=== PATIENT | female | born 1935 | race Caucasian/White ===

== ENCOUNTER 2016-08-14 16:53 | Observation (INO) | payer OTHER ==
--- NOTE | 2016-08-14 17:06 | EDPHY ---
H & P HPI/ROS: Chief complaint: Increasing confusion HPI: 81-year-old woman with a past medical history of Alzheimer's dementia who lives in her own home being brought in by EMS after daughter and social science teacher called because of increasing confusion and aggressive behavior. Per EMS report patient was aggressive with her daughter and has been increasingly difficult to manage at home. Patient is currently confused and unable to provide any medical history. Per EMS report the patient has been in her normal state of health but I cannot verify this at this time. Patient was recently admitted in May of 2016 for acute blood-loss anemia and UTI. This is secondary to Coumadin for AF. Her atrial fibrillation was controlled that time and her Coumadin was stopped. She has only been taking aspirin since per instructions. ROS: Unobtainable secondary to the patient's confusion and dementia Past medical history: Alzheimer's dementia Acute blood-loss Anemia Atrial fibrillation with RVR UTI Medications: Quetiapine, gabapentin, metoprolol, famotidine, Aricept Allergies: No known drug allergies Physical exam: Gen: Awake, Alert, confused, disoriented HEENT: Nose: no rhinorrhea Eyes: PERRLA, EOMI Mouth: Moist mucosa Neck: Supple, no JVD Chest: nontender, lungs clear to auscultation Heart: S1, S2 normal, no murmur Abd: Soft, non-tender, no guarding Back: no CVA tenderness, no midline tenderness Ext: no edema, non-tender Skin: no rash Neuro: CN II-XII intact, Sensation grossly intact, Strength 5/5 in bilateral upper and lower extremities - Personal History Tetanus Vaccine Date: 2009 - Medical/Surgical History Hx Asthma: No Hx Chronic Respiratory Disease: No Hx Diabetes: No Hx Cardiac Disease: Yes Hx Renal Disease: No Hx Cirrhosis: No Hx Alcoholism: No Hx HIV/AIDS: No Hx Splenectomy or Spleen Trauma: No Other PMH: Afib; late alzheimers. GI Bleed - Social History Smoking Status: Former smoker Allergies/Adverse Reactions: No Known Allergies Allergy (Unverified 11/11/09 16:08) Home Medications: Medication Instructions Recorded Calcium Carb W/Vit D [Calcium Carb 500 mg PO BID 06/15/16 W/Vit D 500/200 (*)] Cholecalciferol Vit D3 [Vitamin D3 1,000 units PO DAILY 06/15/16 (*)] Donepezil HCl [Aricept] 10 mg PO DAILY 06/15/16 Famotidine [Pepcid 20 MG (*)] 20 mg PO BID 06/15/16 Quetiapine Fumarate 50 mg PO HS 06/15/16 Acetaminophen [Tylenol 325mg (*)] 650 mg PO Q4HRS PRN #0 tab 06/21/16 Aspirin EC [Aspirin EC 81 mg (*)] 81 mg PO DAILY #0 tab 06/21/16 Metoprolol Tartrate [Lopressor 25 12.5 mg PO BID #0 tab 06/21/16 mg (*)] Digoxin 07/05/16 Digoxin 07/05/16 Furosemide 07/05/16 Potassium 07/05/16 Warfarin Sodium 07/05/16 Medical Decision Making - Diagnostics Imaging: Chest x-ray: Diffuse bilateral infiltrates consistent with pneumonia per Dr. Nguyen, radiology.. ED Course/Re-evaluation: 81-year-old woman with a history of Alzheimer's dementia presenting with increased confusion. She does have some crackles bilaterally. Chest x-ray shows diffuse bilateral infiltrate consistent with pneumonia. Urinalysis is negative. Blood cultures and influenza swab been ordered. I will give ceftriaxone and azithromycin now for empiric community-acquired pneumonia treatment. I have discussed with Dr. Genesis Wu, hospitalist. She will accept the patient to her service for further care. - Data Points Laboratory Results: Laboratory Results 08/14/16 17:17 08/14/16 08/14/16 08/14/16 17:17 17:17 17:00 WBC 9.76 10^3/uL H 10^3/uL (3.80-9.50) RBC 4.55 10^6/uL 10^6/uL (4.18-5.33) Hgb 13.9 g/dL g/dL (12.6-16.3) Hct 41.9 % % (38.0-47.0) MCV 92.1 fL fL (81.5-99.8) MCH 30.5 pg pg (27.9-34.1) MCHC 33.2 g/dL g/dL (32.4-36.7) RDW 14.3 % % (11.5-15.2) Plt Count 378 10^3/uL 10^3/uL (150-400) MPV 9.1 fL fL (8.7-11.7) Neut % (Auto) 65.2 % % (39.3-74.2) Lymph % (Auto) 21.1 % % (15.0-45.0) [place] % (Auto) 12.4 % % (4.5-13.0) Eos % (Auto) 0.5 % L % (0.6-7.6) Baso % (Auto) 0.5 % % (0.3-1.7) Nucleat RBC Rel Count 0.0 % % (0.0-0.2) Absolute Neuts (auto) 6.36 10^3/uL 10^3/uL (1.70-6.50) Absolute Lymphs (auto) 2.06 10^3/uL 10^3/uL (1.00-3.00) Absolute Monos (auto) 1.21 10^3/uL H 10^3/uL (0.30-0.80) Absolute Eos (auto) 0.05 10^3/uL 10^3/uL (0.03-0.40) Absolute Basos (auto) 0.05 10^3/uL 10^3/uL (0.02-0.10) Absolute Nucleated RBC 0.00 10^3/uL 10^3/uL (0-0.01) Immature Gran % 0.3 % % (0.0-1.1) Immature Gran # 0.03 10^3/uL 10^3/uL (0.00-0.10) Sodium Pending Potassium Pending Chloride Pending Carbon Dioxide Pending Anion Gap Pending BUN Pending Creatinine Pending Estimated GFR Pending Glucose Pending Calcium Pending Total Bilirubin Pending Conjugated Bilirubin Pending Unconjugated Bilirubin Pending AST Pending ALT Pending Alkaline Phosphatase Pending Total Protein Pending Albumin Pending Lipase Pending Urine Color YELLOW Urine Appearance HAZY Urine pH 6.0 (5.0-7.5) Ur Specific [place] 1.006 (1.002-1.030) Urine Protein NEGATIVE (NEGATIVE) Urine Ketones TRACE H (NEGATIVE) Urine Blood NEGATIVE (NEGATIVE) Urine Nitrate NEGATIVE (NEGATIVE) Urine Bilirubin NEGATIVE (NEGATIVE) Urine Urobilinogen NEGATIVE EU EU (0.2-1.0) Ur Leukocyte Esterase NEGATIVE (NEGATIVE) Urine Glucose NEGATIVE (NEGATIVE) Departure - Departure Disposition: [facility] Clinical Impression: Confusion, Pneumonia Condition: Fair Referrals: Patient,NotPresent [Unknown] - As per Instructions
[2016-08-14 17:13] LABS: COLOR YELLOW; LEUKOCYTE ESTERASE,URINE NEGATIVE (NEGATIVE); NITRITE,URINE NEGATIVE (NEGATIVE)
[2016-08-14 17:36] LABS: % IMMATURE GRANULYOCYTES 0.3 % (0.0-1.1); ABSOLUTE IMMATURE GRANULOCYTES 0.03 10^3/uL (0.00-0.10); ADD DIFF? NO; ADD MORPH? NO; ADD SCAN? NO; ATYPICAL LYMPHOCYTE FLAG 20 (0-99); FRAGMENT RBC FLAG 10 (0-99); HEMATOCRIT 41.9 % (38.0-47.0); HEMOGLOBIN 13.9 g/dL (12.6-16.3); LEFT SHIFT FLG 0 (0-99); LIPEMIA HEMOLYSIS FLAG 80 (0-99); MEAN CELL HEMOGLOBIN 30.5 pg (27.9-34.1); MEAN CELL HEMOGLOBIN CONCENTR. 33.2 g/dL (32.4-36.7); MEAN CELL VOLUME 92.1 fL (81.5-99.8); MEAN PLATELET VOLUME 9.1 fL (8.7-11.7); PLATELET CLUMPS FLAG 0 (0-99); PLATELET COUNT 378 10^3/uL (150-400); RED BLOOD CELL COUNT 4.55 10^6/uL (4.18-5.33); RED CELL DISTRIBUTION WIDTH 14.3 % (11.5-15.2)
[2016-08-14] MEDS ORDERED: AZITHROMYCIN 250 MG TAB PO ONE (18:01)
[2016-08-14 18:09] LABS: ALANINE AMINOTRANSFERASE 36 IU/L (9-52); ALBUMIN 4.2 g/dL (3.5-5.0); ALKALINE PHOSPHATASE 109 IU/L (38-126); ANION GAP 13 mEq/L (8-16); ASPARTATE AMINOTRANSFERASE 36 IU/L (14-46); BILIRUBIN,TOTAL 0.8 mg/dL (0.1-1.4); BILIRUBIN-CONJUGATED 0.4 mg/dL (0.0-0.5); BILIRUBIN-UNCONJUGATED 0.4 mg/dL (0.0-1.1); CALCIUM 9.5 mg/dL (8.5-10.4); CARBON DIOXIDE 24 mEq/l (22-31); CHLORIDE 103 mEq/L (97-110); CREATININE 0.6 mg/dL (0.6-1.0); GLOMERULAR FILTRATION RATE > 60; GLUCOSE 85 mg/dL (70-100); POTASSIUM 4.1 mEq/L (3.5-5.2); SODIUM 140 mEq/L (134-144); TOTAL PROTEIN 7.6 g/dL (6.3-8.2)
[2016-08-14] MEDS ORDERED: ONDANSETRON DISINTEGRATING 4 MG TAB PO PRN (18:26)
[2016-08-14] MEDS ORDERED: NS 1,000 ML IV SCH (18:30)
[2016-08-14 18:46] LABS: INR 1.13 (0.83-1.16); PROTIME(PATIENT) 14.4 SEC (12.0-15.0)
--- NOTE | 2016-08-14 19:19 | GHP ---
[f rep st] HISTORY AND PHYSICAL DATE OF ADMISSION: 08/14/2016 CHIEF COMPLAINT: Combative. HISTORY OF PRESENT ILLNESS: This is a 81-year-old woman, with reported end-stage dementia, who was brought in by EMS. Report that I get is either through chart or through discussion with ED bonnie gill, Dr. Turner, as the patient is unable to provide much information. I attempted to call both her hu javed and her daughter. Her 's phone number was disconnected, and her daughter's number went straight to her voicemail. Apparently, she was brought in by EMS after being combative with her daughter. Her daughter told [employer] that she was unable to care for her anymore. The patient tells me that she lives with her , now I am unsure exactly what to make of all this. REVIEW OF SYSTEMS: Negative including cough, fever, myalgias. She is not having any abdominal pain . PAST MEDICAL/SURGICAL HISTORY: 1. End-stage dementia. 2. History of breast cancer. 3. Atrial fibrillation. MEDICATIONS: Please see medication reconciliation. ALLERGIES: None. FAMILY HISTORY: Unobtainable, given patient's condition. SOCIAL HISTORY: Negative for alcohol, tobacco, or illicit drugs. REVIEW OF SYSTEMS: 10-point review of systems is conducted and is negative except per HPI. PHYSICAL EXAM: VITAL SIGNS: Blood pressure 140/80, heart rate is 88, she is afebrile, breathing no rmally. GENERAL: The patient is a pleasant female, not in acute distress. HEENT: Normocephalic, atraumatic. CARDIOVASCULAR: Regular rate and rhythm. She has 1/6 systolic murmur. PULMONARY: Ary ngs clear to auscultation bilaterally. ABDOMEN: Soft, nontender, nondistended. SKIN: No rash. : No [place]. NEUROLOGIC: Alert and oriented x3. She is moving all extremities. PSYCHIATRIC: Nor mal mood and affect. LABS: White count 9.7, with an even distribution. CMP is normal. Urinalysis is negative. DATA: I discussed this case with Dr. Turner. Will admit to med/surg. I personally viewed and inter preted her chest x-ray. This shows mild perihilar infiltrates, mild interstitial predominance. IMPRESSION AND PLAN: A 81-year-old female with dementia brought in for aggressive behavior. 1. Dementia with behavioral outbursts: She currently appears calm to me. I will not empirically w rite for any antipsychotics, though, if she becomes agitated would consider this. I am unable to gi ve much history at this point, as I am unable to contact family and she is not providing much histor y. Will need case management assistance to sort out exactly what happened. There may need to be fu rther placement considerations. 2. Pulmonary: She has mild perihilar infiltrates and interstitial predominance. She clinically do es not have a pneumonia or influenza. Influenza has been sent. She has gotten 1 dose of community- acquired pneumonia antibiotics. I will hold off writing further antibiotics, and follow her clinica l course. If she is positive for influenza, would consider Tamiflu. 3. Dementia. 4. Atrial fibrillation, reportedly on anticoagulation: I have checked an INR. She is rate control led. 5. Code status: I am unable to determine this at this point. I will not put an order because of t his. She was do not resuscitate on previous admission. 6. Venous thromboembolism risk: She is going to be moderate to high. I will place her on Lovenox. /[id number]/MODL
[2016-08-14] MEDS: ACETAMINOPHEN 325 MG TAB PO PRN (21:19)
[2016-08-15 05:32] LABS: % IMMATURE GRANULYOCYTES 0.4 % (0.0-1.1); ABSOLUTE IMMATURE GRANULOCYTES 0.03 10^3/uL (0.00-0.10); ADD DIFF? NO; ADD MORPH? NO; ADD SCAN? NO; ATYPICAL LYMPHOCYTE FLAG 30 (0-99); FRAGMENT RBC FLAG 0 (0-99); HEMATOCRIT 38.1 % (38.0-47.0); HEMOGLOBIN 12.5 g/dL (12.6-16.3); LEFT SHIFT FLG 0 (0-99); LIPEMIA HEMOLYSIS FLAG 80 (0-99); MEAN CELL HEMOGLOBIN 30.7 pg (27.9-34.1); MEAN CELL HEMOGLOBIN CONCENTR. 32.8 g/dL (32.4-36.7); MEAN CELL VOLUME 93.6 fL (81.5-99.8); MEAN PLATELET VOLUME 9.4 fL (8.7-11.7); PLATELET CLUMPS FLAG 0 (0-99); PLATELET COUNT 313 10^3/uL (150-400); RED BLOOD CELL COUNT 4.07 10^6/uL (4.18-5.33); RED CELL DISTRIBUTION WIDTH 14.1 % (11.5-15.2)
[2016-08-15 05:36] LABS: INR 1.21 (0.83-1.16); PROTIME(PATIENT) 15.3 SEC (12.0-15.0)
[2016-08-15 05:46] LABS: ANION GAP 7 mEq/L (8-16); CALCIUM 8.9 mg/dL (8.5-10.4); CARBON DIOXIDE 25 mEq/l (22-31); CHLORIDE 107 mEq/L (97-110); CREATININE 0.5 mg/dL (0.6-1.0); GLOMERULAR FILTRATION RATE > 60; GLUCOSE 83 mg/dL (70-100); POTASSIUM 4.1 mEq/L (3.5-5.2); SODIUM 139 mEq/L (134-144)
--- NOTE | 2016-08-15 09:58 | HOSPPROG ---
Hospitalist Progress Note Assessment/Plan: #DEMENTIA WITH BEHAVIORAL OUTBURSTS. #PAROXYSMAL AFIB, on Metoprolol. Holding AC #HX OF BREAST CANCER #GERD #PERIHILAR INFILTRATES ON CXR, NO CLINICAL PNEUMONIA PLAN: -CM to evaluate. Needs placement -Hold Gabapentin -Hold AC for now. Need to determine if she is a fall risk. Cont with Lovenox at prophylactic doses -Restart Seroquel -PT/OT S: No overnight events. Several outbursts reported. Difficult to obtain history. Afebrile. O: VSS NAD AWAKE AND ALERT. NOT ORIENTED MMM RRR CTA B S/NT/ND NO EDEMA LABS REVIEWED Objective: Vital Signs Temp Pulse Resp BP Pulse Ox 36.6 C 93 16 111/80 94 08/15/16 07:44 08/15/16 07:44 08/15/16 07:44 08/15/16 07:44 08/15/16 07:44 Laboratory Results 08/15/16 04:25 08/15/16 04:25 08/14/16 08/15/16 08/16/16 05:59 05:59 05:59 Intake Total 650 150 Output Total 50 300 Balance 600 -150 PT 15.3 SEC (12.0-15.0) H 08/15/16 04:25 INR 1.21 (0.83-1.16) H 08/15/16 04:25 ICD10 Worksheet Patient Problems: Problems Problem Status Onset Confusion Acute Pneumonia Acute Arthrodesis status Acute Cervical radiculitis Acute Hematochezia Acute Neck pain Acute
--- NOTE | 2016-08-15 10:26 | CPEKG ---
Heart Rate: 103 RR Interval: 583 QRSD Interval: 74 QT Interval: 344 QTC Interval: 451 QRS [place]: 24 T Wave [place]: 19 EKG Severity - ABNORMAL ECG - EKG Impression: ATRIAL FIBRILLATION Electronically Signed By: Daniel Whaley 15-Aug-2016 12:58:54
[2016-08-15] MEDS: METOPROLOL TARTRATE 25 MG TAB PO SCH (10:46)
[2016-08-15] MEDS: DONEPEZIL HCL 5 MG TAB PO SCH (10:46)
[2016-08-15] MEDS: FAMOTIDINE 20 MG TAB PO SCH ×2 (10:48→20:57)
[2016-08-15] MEDS: CHOLECALCIFEROL VIT D3 1,000 UNITS TAB PO SCH (10:48)
[2016-08-15] MEDS: ENOXAPARIN 40 MG/0.4 ML SYR SC SCH (10:53)
[2016-08-15] MEDS: ACETAMINOPHEN 325 MG TAB PO PRN (15:28)
[2016-08-15] MEDS: QUEtiapine FUMARATE 50 MG TAB PO SCH (20:57)
[2016-08-16 07:47] LABS: % IMMATURE GRANULYOCYTES 0.3 % (0.0-1.1); ABSOLUTE IMMATURE GRANULOCYTES 0.02 10^3/uL (0.00-0.10); ADD DIFF? NO; ADD MORPH? NO; ADD SCAN? NO; ATYPICAL LYMPHOCYTE FLAG 0 (0-99); FRAGMENT RBC FLAG 0 (0-99); HEMATOCRIT 43.7 % (38.0-47.0); HEMOGLOBIN 14.2 g/dL (12.6-16.3); LEFT SHIFT FLG 0 (0-99); LIPEMIA HEMOLYSIS FLAG 80 (0-99); MEAN CELL HEMOGLOBIN 30.9 pg (27.9-34.1); MEAN CELL HEMOGLOBIN CONCENTR. 32.5 g/dL (32.4-36.7); PLATELET CLUMPS FLAG 0 (0-99); PLATELET COUNT 333 10^3/uL (150-400); RED CELL DISTRIBUTION WIDTH 14.1 % (11.5-15.2)
[2016-08-16] MEDS: DONEPEZIL HCL 5 MG TAB PO SCH (07:47)
[2016-08-16] MEDS: ACETAMINOPHEN 325 MG TAB PO PRN (07:48)
[2016-08-16] MEDS: CHOLECALCIFEROL VIT D3 1,000 UNITS TAB PO SCH (07:48)
[2016-08-16] MEDS: METOPROLOL TARTRATE 25 MG TAB PO SCH (07:48)
[2016-08-16] MEDS: FAMOTIDINE 20 MG TAB PO SCH ×2 (07:48→19:48)
[2016-08-16] MEDS: ENOXAPARIN 40 MG/0.4 ML SYR SC SCH (07:49)
[2016-08-16 08:08] LABS: ANION GAP 10 mEq/L (8-16); CALCIUM 9.7 mg/dL (8.5-10.4); CARBON DIOXIDE 24 mEq/l (22-31); CHLORIDE 106 mEq/L (97-110); CREATININE 0.5 mg/dL (0.6-1.0); GLOMERULAR FILTRATION RATE > 60; GLUCOSE 114 mg/dL (70-100); MAGNESIUM 1.6 mg/dL (1.6-2.3); SODIUM 140 mEq/L (134-144)
--- NOTE | 2016-08-16 09:40 | HOSPPROG ---
Hospitalist Progress Note Assessment/Plan: #DEMENTIA WITH BEHAVIORAL OUTBURSTS, needs placement #PAROXYSMAL AFIB, on Metoprolol. Restart AC, not a fall risk. #HX OF BREAST CANCER #GERD #PERIHILAR INFILTRATES ON CXR, NO CLINICAL PNEUMONIA PLAN: -CM to evaluate. Needs placement -Hold Gabapentin -Restart Warfarin -Donepezil, Seroquel -Gentle orientation if possible -PT/OT S: No overnight events. Persistent several outbursts reported. Difficult to obtain history. Afebrile. O: VSS NAD AWAKE AND ALERT. NOT ORIENTED MMM RRR CTA B S/NT/ND NO EDEMA LABS REVIEWED Objective: Vital Signs Temp Pulse Resp BP Pulse Ox 36.3 C 98 16 133/81 H 92 08/16/16 07:45 08/16/16 07:45 08/16/16 07:45 08/16/16 07:45 08/16/16 07:45 Laboratory Results 08/16/16 07:36 08/16/16 07:36 08/15/16 08/16/16 08/17/16 05:59 05:59 05:59 Intake Total 650 150 Output Total 50 1050 150 Balance 600 -900 -150 PT 15.3 SEC (12.0-15.0) H 08/15/16 04:25 INR 1.21 (0.83-1.16) H 08/15/16 04:25 ICD10 Worksheet Patient Problems: Problems Problem Status Onset Confusion Acute Pneumonia Acute Arthrodesis status Acute Cervical radiculitis Acute Hematochezia Acute Neck pain Acute
[2016-08-16] MEDS ORDERED: LORazepam 2 MG/ML INJ ONE (14:06)
[2016-08-16] MEDS ORDERED: LORazepam 2 MG/ML INJ IVP ONE (14:30)
[2016-08-16] MEDS: LORazepam 2 MG/ML INJ IVP PRN ×2 (14:30→19:52)
[2016-08-16] MEDS ORDERED: WARFARIN SODIUM 2.5 MG TAB PO ONE (16:00)
[2016-08-16] MEDS: ASPIRIN 81 MG CHEWABLE TAB PO SCH (19:48)
[2016-08-16] MEDS: QUEtiapine FUMARATE 50 MG TAB PO SCH (19:48)
[2016-08-17 05:30] LABS: % IMMATURE GRANULYOCYTES 0.3 % (0.0-1.1); ABSOLUTE IMMATURE GRANULOCYTES 0.02 10^3/uL (0.00-0.10); ADD DIFF? NO; ADD MORPH? NO; ADD SCAN? NO; ATYPICAL LYMPHOCYTE FLAG 10 (0-99); FRAGMENT RBC FLAG 0 (0-99); HEMATOCRIT 38.8 % (38.0-47.0); HEMOGLOBIN 12.5 g/dL (12.6-16.3); LEFT SHIFT FLG 0 (0-99); LIPEMIA HEMOLYSIS FLAG 80 (0-99); MEAN CELL HEMOGLOBIN 29.5 pg (27.9-34.1); MEAN CELL HEMOGLOBIN CONCENTR. 32.2 g/dL (32.4-36.7); MEAN CELL VOLUME 91.5 fL (81.5-99.8); MEAN PLATELET VOLUME 9.1 fL (8.7-11.7); PLATELET CLUMPS FLAG 0 (0-99); PLATELET COUNT 316 10^3/uL (150-400); RED BLOOD CELL COUNT 4.24 10^6/uL (4.18-5.33); RED CELL DISTRIBUTION WIDTH 13.9 % (11.5-15.2)
[2016-08-17] MEDS: ACETAMINOPHEN 325 MG TAB PO PRN ×2 (08:02→14:56)
[2016-08-17] MEDS: METOPROLOL TARTRATE 25 MG TAB PO SCH (08:02)
[2016-08-17] MEDS: CHOLECALCIFEROL VIT D3 1,000 UNITS TAB PO SCH (08:03)
[2016-08-17] MEDS: DONEPEZIL HCL 5 MG TAB PO SCH (08:03)
[2016-08-17] MEDS: FAMOTIDINE 20 MG TAB PO SCH ×2 (08:03→19:44)
[2016-08-17] MEDS: ASPIRIN 81 MG CHEWABLE TAB PO SCH (08:03)
--- NOTE | 2016-08-17 10:36 | HOSPPROG ---
Hospitalist Progress Note Assessment/Plan: 81 yo female with advance dementia with behavioral outbursts admitted for worsening behavioral outbursts and increased confusion. She had an infectious w/ u which was essentially negative. She did have an XR with perihilar infiltrates , but clinically did not have an infection. She initially received IVF and these have been stopped. Her demential with behavioral outburst have progressed and at this time she needs placement w/i a dementia unit for safety. She is awaiting placement. #DEMENTIA WITH BEHAVIORAL OUTBURSTS, needs placement, on Donepezil and Seroquel. Gabapentin has been stopped due to confusion. She denies pain. Ativan as needed #PAROXYSMAL AFIB, on Metoprolol. AC was discontinued prior to admission. She is not on AC #HX OF BREAST CANCER #GERD #PERIHILAR INFILTRATES ON CXR, NO CLINICAL PNEUMONIA PLAN: -CM to evaluate. Needs placement -Hold Gabapentin -Donepezil, Seroquel -Gentle orientation if possible -PT/OT -Ativan as needed. Will change to PO. S: No overnight events. Will likely be placed today O: VSS NAD AWAKE AND ALERT. NOT ORIENTED MMM RRR CTA B S/NT/ND NO EDEMA BCx: negative thus far after 36 hrs. Objective: Vital Signs Temp Pulse Resp BP Pulse Ox 36.7 C 108 H 14 122/90 H 93 08/17/16 08:00 08/17/16 08:00 08/17/16 08:00 08/17/16 08:00 08/17/16 08:00 Laboratory Results 08/17/16 04:50 08/16/16 07:36 08/16/16 08/17/16 08/18/16 05:59 05:59 05:59 Intake Total 150 Output Total 1050 750 Balance -900 -750 PT 15.3 SEC (12.0-15.0) H 08/15/16 04:25 INR 1.21 (0.83-1.16) H 08/15/16 04:25 - Physical Exam Constitutional: no apparent distress, appears nourished, not in pain Eyes: PERRL, anicteric sclera, EOMI Ears, Nose, Mouth, Throat: moist mucous membranes, hearing normal, ears appear normal, no oral mucosal ulcers Cardiovascular: regular rate and rhythym, no murmur, rub, or gallop Respiratory: no respiratory distress, no rales or rhonchi, clear to auscultation Gastrointestinal: normoactive bowel sounds, soft, non-tender abdomen, no palpable masses Genitourinary: no bladder fullness, no bladder tenderness, no renal bruits Skin: no rashes or abrasions, no fluctuance, no induration Musculoskeletal: full muscle strength, no muscle tenderness, normal joint ROM Neurologic: sensation intact bilaterally Psychiatric: poor insight, poor judgement Lymph, Heme, Immunologic: no cervical LAD ICD10 Worksheet Patient Problems: Problems Problem Status Onset Confusion Acute Pneumonia Acute Arthrodesis status Acute Cervical radiculitis Acute Hematochezia Acute Neck pain Acute
[2016-08-17] MEDS ORDERED: LORazepam 1 MG/0.5 ML UDSYR PO PRN (10:38)
[2016-08-17] MEDS: ENOXAPARIN 40 MG/0.4 ML SYR SC SCH (12:02)
[2016-08-17] MEDS: LORazepam 0.5 MG TAB PO PRN ×3 (12:02→19:44)
[2016-08-17 15:57] VITALS: RESP 16
[2016-08-17] MEDS: QUEtiapine FUMARATE 50 MG TAB PO SCH (19:44)
[2016-08-18 06:10] VITALS: PULSE 84; TEMP 98.2; O2SAT 94
[2016-08-18 07:16] VITALS: BP 147/100
[2016-08-18] MEDS: DONEPEZIL HCL 5 MG TAB PO SCH (07:49)
[2016-08-18] MEDS: ASPIRIN 81 MG CHEWABLE TAB PO SCH (07:50)
[2016-08-18] MEDS: CHOLECALCIFEROL VIT D3 1,000 UNITS TAB PO SCH (07:50)
[2016-08-18] MEDS: FAMOTIDINE 20 MG TAB PO SCH (07:50)
[2016-08-18] MEDS: LORazepam 0.5 MG TAB PO PRN (07:50)
[2016-08-18] MEDS: METOPROLOL TARTRATE 25 MG TAB PO SCH (07:50)
--- NOTE | 2016-08-18 10:00 | PDIAF ---
- Diagnosis Diagnosis: dementia - Medication Management Discharge Medications: Medications to Continue on Transfer Acetaminophen [Tylenol 325mg (*)] 650 mg PO Q4HRS PRN #60 tab 08/18/16 [Last Taken Unknown] Aspirin [Aspirin 81mg (*)] 81 mg PO DAILY #30 tab.chew 08/18/16 [Last Taken Unknown] Cholecalciferol Vit D3 [Vitamin D3 (*)] 1,000 units PO DAILY #30 tab 08/18/16 [ Last Taken Unknown] Donepezil HCl [Aricept] 10 mg PO DAILY #30 tablet 08/18/16 [Last Taken Unknown] Famotidine [Pepcid 20 MG (*)] 20 mg PO BID #60 tab 08/18/16 [Last Taken Unknown] Metoprolol Tartrate [Lopressor 25 mg (*)] 12.5 mg PO DAILY #30 tab 08/18/16 [ Last Taken Unknown] Quetiapine Fumarate 50 mg PO HS #30 tablet 08/18/16 [Last Taken Unknown] Discharge Medications: Refer to the Discharge Home Medication list for PRN reason. - Orders Services needed: Registered Nurse, Master Channel Installer Diet Recommendation: no restrictions on diet Diet Texture: Thin Liquids - Follow Up Care Current Providers and Referrals: Patient,NotPresent [Unknown] - As per Instructions
[2016-08-18] MEDS: ENOXAPARIN 40 MG/0.4 ML SYR SC SCH (10:26)
[2016-08-18] MEDS: ACETAMINOPHEN 325 MG TAB PO PRN (13:31)
--- NOTE | 2016-08-18 20:03 | GDS ---
DISCHARGE DIAGNOSES: 1. Dementia with behavioral outburst. 2. Atrial fibrillation, permanent. HISTORY OF PRESENT ILLNESS: A 81-year-old female with well known dementia brought in for aggressive behavior and disruptive outbursts. For details of the patient's initial presentation, please see the History and Physical dated . HOSPITAL COURSE: By issue: 1. Dementia with behavioral disturbance. It was decided that the patient be taken to assisted facility with a lock-down cognitive aj. The patient remained stable on our floor with 24 hour supervision and sitter. 2. Atrial fibrillation, permanent. Patient remained rate controlled. Continue on her home medications. MEDICATIONS AT THE TIME OF TRANSFER: Please reference medication reconciliation printed on 06/17/2017. FOLLOWUP APPOINTMENTS: Include physicians provided through the lock-down nursing aj she is being discharged to. PENDING STUDIES: At the time of this dictation: None. I spent > 30 minutes in the planning and coordination of this discharge /[id number]/MODL MTDD
== END 2016-08-18 18:47 ==
LOC: EDUNIT# → INTOOBSV 18:04 → F3E 20:50
PROVIDERS: ADMIT Internal Medicine; ATTEND Hospitalist
DX: G30.9 Alzheimer's disease, unspecified (principal); F02.81 Dementia in other diseases classified elsewhere, unspecified severity, with behavioral disturbance; I48.2 Chronic atrial fibrillation; K21.9 Gastro-esophageal reflux disease without esophagitis; Z85.3 Personal history of malignant neoplasm of breast
CPT/HCPCS: 71020; 93005; 97165; 99285; G0378; J0696; J1650

== ENCOUNTER 2016-11-09 18:17 | Emergency (ER) | payer OTHER ==
--- NOTE | 2016-11-09 19:09 | EDPHY ---
H & P Stated Complaint: "gait off" Time Seen by Provider: 11/09/16 18:58 HPI/ROS: CHIEF COMPLAINT: Abnormal gait HISTORY OF PRESENT ILLNESS: The patient is a 81-year-old female with dementia from [facility]. Family was called today around 3:00 p.m. because they noticed her gait was off. She typically walks a lot throughout the day but they noticed today she was not walking as much in which she does she kind of leans to the left and tracks her right foot. The patient denies any pain. She has some very small abrasion to her right akhtar. She also has a headache but she states this is baseline. No history of CVA or MS. No known falls. REVIEW OF SYSTEMS: Constitutional: denies: chills, fever, recent illness, recent injury EENTM: denies: blurred vision, double vision, nose congestion Respiratory: denies: cough, shortness of breath Cardiac: denies: chest pain, irregular heart rate, lightheadedness, palpitations Gastrointestinal/Abdominal: denies: abdominal pain, diarrhea, nausea, vomiting, blood streaked stools Genitourinary: denies: dysuria, frequency, hematuria, pain Musculoskeletal: See HPI Skin: denies: lesions, rash, jaundice, bruising Neurological: denies: headache, numbness, paresthesia, tingling, dizziness, weakness Hematologic/Lymphatic: denies: blood clots, easy bleeding, easy bruising Immunologic/allergic: denies: HIV/AIDS, transplant EXAM: GENERAL: Well-appearing, well-nourished and in no acute distress. HEAD: Atraumatic, normocephalic. EYES: Pupils equal round and reactive to light, extraocular movements intact, sclera anicteric, conjunctiva are normal. ENT: TMs normal, nares patent, oropharynx clear without exudates. Moist mucous membranes. NECK: Normal range of motion, supple without lymphadenopathy or JVD. LUNGS: Breath sounds clear to auscultation bilaterally and equal. No wheezes rales or rhonchi. HEART: Regular rate and rhythm without murmurs, rubs or gallops. ABDOMEN: Soft, nontender, normoactive bowel sounds. No guarding, no rebound. No masses appreciated. BACK: No CVA tenderness, no spinal tenderness, step-offs or deformities EXTREMITIES: Normal range of motion, no pitting or edema. No clubbing or cyanosis. NEUROLOGICAL: Cranial nerves II through XII grossly intact. Normal speech, patient leans slightly to the right when ambulating and tends to drag her right foot been very slightly. When asked she states that she does have mild pelvic pain while ambulating. . 5/5 strength, normal movement in all extremities, normal sensation PSYCH: Confused. SKIN: Warm, dry, normal turgor, no visible rashes or lesions. Source: Patient Exam Limitations: No limitations - Personal History Current Tetanus/Diphtheria Vaccine: Yes Current Tetanus Diphtheria and Acellular Pertussis (TDAP): Yes Tetanus Vaccine Date: 2009 - Medical/Surgical History Hx Asthma: No Hx Chronic Respiratory Disease: No Hx Diabetes: No Hx Cardiac Disease: Yes Hx Renal Disease: No Hx Cirrhosis: No Hx Alcoholism: No Hx HIV/AIDS: No Hx Splenectomy or Spleen Trauma: No Other PMH: [facility] pt. dementia, Afib; late alzheimers; breast CA. GI Bleed - Family History Significant Family History: No pertinent family hx - Social History Smoking Status: Former smoker Alcohol Use: Sober Drug Use: None Constitutional: Initial Vital Signs Temperature (C) 36.2 C 11/09/16 18:24 Heart Rate 81 11/09/16 18:24 Respiratory Rate 16 11/09/16 18:24 Blood Pressure 106/72 11/09/16 18:24 O2 Sat (%) 96 11/09/16 18:24 O2 Delivery Mode Room Air Allergies/Adverse Reactions: No Known Allergies Allergy (Unverified 11/11/09 16:08) Home Medications: Medication Instructions Recorded Acetaminophen [Tylenol 325mg (*)] 650 mg PO Q4HRS PRN #60 tab 08/18/16 Aspirin [Aspirin 81mg (*)] 81 mg PO DAILY #30 tab.chew 08/18/16 Cholecalciferol Vit D3 [Vitamin D3 1,000 units PO DAILY #30 tab 08/18/16 (*)] Donepezil HCl [Aricept] 10 mg PO DAILY #30 tablet 08/18/16 Famotidine [Pepcid 20 MG (*)] 20 mg PO BID #60 tab 08/18/16 Metoprolol Tartrate [Lopressor 25 12.5 mg PO DAILY #30 tab 08/18/16 mg (*)] Quetiapine Fumarate 50 mg PO HS #30 tablet 08/18/16 Medical Decision Making - Diagnostics Imaging: Discussed imaging studies w/ will call order clerk Radiologist, I viewed and interpreted images myself ED Course/Re-evaluation: We discussed the x-ray results. I had a long discussion with patient's daughter. I do not have and a diagnosis at this point for why she has a changed gait today. She is not show symptoms of stroke. I suspect she has a radiculopathy causing may very mild foot drop. Or possibly low back pain. I offered admission and MRI of her lumbar spine and possibly brain. Daughter and patient state that she does not do well on hospitals because very agitated and wonders. She thinks that the patient was sent here primarily to make sure she is safe. Otherwise they are comfortable with her returning home. It is also question as to whether not they would want any invasive procedures if required. I believe that is safe to workup as an outpatient. I will call Dr. Collins her primary to facilitate outpatient workup. We discussed indications for returning. 8:[address] p[address] we discussed the CT results. Patient and family are eager to go home. Daughter states that she is actually walking better than she was earlier. She has normal reflexes, normal dorsiflexion strength and plantar flexion strength. Patient states she feels asymptomatic. She urinated and did not give us a sample. She denies urinary symptoms. I have paged Dr. Collins to discuss and facilitate outpatient workup. 9:14 p.m. I discussed the case with Dr. Gray who is on-call for Dr. Collins. She agrees with the plan and will have the spring encaser arrange follow-up. Differential Diagnosis: Partial list of the Differential diagnosis considered include but were not limited to; hip fracture, knee injury, radiculopathy and although unlikely based on the history and physical exam, I also considered CVA, hemorrhage, MS, infection. I discussed these differential diagnoses and the plan with the patient as well as the usual and expected course. The patient understands that the diagnosis is provisional and that in medicine we are not always correct and that further workup is often warranted. Usual and customary warnings were given. All of the patient's questions were answered. The patient was instructed to return to the emergency department should the symptoms at all worsen or return, otherwise to followup with the physician as we discussed. Departure - Departure Disposition: Home, Routine, Self-Care Clinical Impression: Gait abnormality Condition: Fair Instructions: Fall Prevention for Older Adults (ED) Referrals: Chao Collins MD [Primary Care Provider] - As per Instructions
[2016-11-09 21:00] VITALS: BP 97/78; PULSE 98; RESP 18; TEMP 98.2; O2SAT 93
== END 2016-11-09 21:00 | disposition home or self-care (01) ==
DX: R26.9 Unspecified abnormalities of gait and mobility (principal); Z79.82 Long term (current) use of aspirin; Z85.3 Personal history of malignant neoplasm of breast; Z87.891 Personal history of nicotine dependence

== ENCOUNTER 2016-11-17 11:29 | Emergency (ER) | payer OTHER ==
[2016-11-17 11:53] VITALS: RESP 18
[2016-11-17 12:04] LABS: COLOR YELLOW; LEUKOCYTE ESTERASE,URINE 1+ (NEGATIVE); NITRITE,URINE POSITIVE (NEGATIVE)
[2016-11-17 12:08] LABS: MUCUS TRACE /lpf (NONE-1+)
[2016-11-17 12:10] LABS: RBC,URINE NONE SEEN /hpf (0-3)
--- NOTE | 2016-11-17 12:11 | EDPHY ---
H & P Stated Complaint: increased agitation, aggressive with staff at [facility] Time Seen by Provider: 11/17/16 11:30 HPI/ROS: CHIEF COMPLAINT: increased agitation and aggression HISTORY OF PRESENT ILLNESS: 81-year-old female with history end-stage dementia presents to the emergency department by ambulance from [facility] for increased aggressive behavior and disruptive outbursts over the last week. Today the patient was knocking on other residents doors and was swinging at staff members. Patient has been agitated since arriving at [facility] in July per the nurse I spoke to taking care of her today. This morning was her 1st dose of an extra dose of Seroquel. senior care reports she is normally redirectable though today she was not. She normally takes 50 mg of Seroquel every night, this morning she got 25 mg that that ordered for increasing agitation. No cold or cough symptoms, normal appetite. REVIEW OF SYSTEMS: A comprehensive 10 point review of systems is otherwise negative aside from elements mentioned in the history of present illness. Source: Patient, EMS, senior care records, Old records Exam Limitations: Clinical condition - Personal History Tetanus Vaccine Date: 2009 - Medical/Surgical History Hx Asthma: No Hx Chronic Respiratory Disease: No Hx Diabetes: No Hx Cardiac Disease: Yes Hx Renal Disease: No Hx Cirrhosis: No Hx Alcoholism: No Hx HIV/AIDS: No Hx Splenectomy or Spleen Trauma: No Other PMH: [facility] pt. dementia, Afib; late alzheimers; breast CA. GI Bleed - Social History Smoking Status: Former smoker - Physical Exam Exam: Physical Exam Gen: Awake and alert, no apparent distress HEENT: PERRL, moist mucous membranes NECK: no meningismus CV: regular rate and regular rhythm PULM: CTAB, no wheezes ABDOMEN: soft, non tender to palpation, BS present BACK: No CVA tenderness NEURO: Follows commands, moves all extremities, no facial asymmetry EXTREMITIES: normal appearing SKIN: no rash or break in skin on exposed skin Constitutional: Initial Vital Signs Temperature (C) 36.6 C 11/17/16 11:51 Heart Rate 85 11/17/16 11:51 Respiratory Rate 18 11/17/16 11:51 Blood Pressure 116/81 H 11/17/16 11:51 O2 Sat (%) 94 11/17/16 11:51 O2 Delivery Mode Room Air Allergies/Adverse Reactions: No Known Allergies Allergy (Unverified 11/11/09 16:08) Home Medications: Medication Instructions Recorded Acetaminophen [Tylenol 325mg (*)] 650 mg PO Q4HRS PRN #60 tab 08/18/16 Aspirin [Aspirin 81mg (*)] 81 mg PO DAILY #30 tab.chew 08/18/16 Cholecalciferol Vit D3 [Vitamin D3 1,000 units PO DAILY #30 tab 08/18/16 (*)] Donepezil HCl [Aricept] 10 mg PO DAILY #30 tablet 08/18/16 Famotidine [Pepcid 20 MG (*)] 20 mg PO BID #60 tab 08/18/16 Metoprolol Tartrate [Lopressor 25 12.5 mg PO DAILY #30 tab 08/18/16 mg (*)] Quetiapine Fumarate 50 mg PO HS #30 tablet 08/18/16 Cephalexin [Keflex] 500 mg PO BID 5 Days 11/17/16 Medical Decision Making ED Course/Re-evaluation: IV established, CBC, chemistry panel and urinalysis ordered. Records were reviewed from patient's visit 1 week ago. She had a normal CT brain at this time, no laboratory studies were performed. CBC and chemistry panel are unremarkable with normal electrolytes. Urinalysis shows positive nitrates with 1+ leukocytes and 5-10 WBCs, I think this could be contributing to her increased agitation. Patient was given her 1st dose of Keflex in the emergency department and discharged with a prescription for a 5 day course. Urine culture has been ordered and is pending. Patient is nontoxic appearing, normal vital signs, afebrile. She is ambulatory without difficulty with a normal gait. Pt is given 0.5mg of oral lorazepam for agitation in the emergency department. Differential Diagnosis: Diagnosis considered but not limited to urinary tract infection, encephalopathy , electrolyte abnormality, medication reaction, end-stage dementia. - Data Points Laboratory Results: Laboratory Results 11/17/16 12:04 11/17/16 12:04 11/17/16 11/17/16 11/17/16 12:04 12:04 11:48 WBC 8.23 10^3/uL 10^3/uL (3.80-9.50) RBC 4.99 10^6/uL 10^6/uL (4.18-5.33) Hgb 15.1 g/dL g/dL (12.6-16.3) Hct 45.0 % % (38.0-47.0) MCV 90.2 fL fL (81.5-99.8) MCH 30.3 pg pg (27.9-34.1) MCHC 33.6 g/dL g/dL (32.4-36.7) RDW 15.3 % H % (11.5-15.2) Plt Count 305 10^3/uL 10^3/uL (150-400) MPV 9.6 fL fL (8.7-11.7) Neut % (Auto) 71.4 % % (39.3-74.2) Lymph % (Auto) 19.1 % % (15.0-45.0) [place] % (Auto) 8.0 % % (4.5-13.0) Eos % (Auto) 0.5 % L % (0.6-7.6) Baso % (Auto) 0.6 % % (0.3-1.7) Nucleat RBC Rel Count 0.0 % % (0.0-0.2) Absolute Neuts (auto) 5.88 10^3/uL 10^3/uL (1.70-6.50) Absolute Lymphs (auto) 1.57 10^3/uL 10^3/uL (1.00-3.00) Absolute Monos (auto) 0.66 10^3/uL 10^3/uL (0.30-0.80) Absolute Eos (auto) 0.04 10^3/uL 10^3/uL (0.03-0.40) Absolute Basos (auto) 0.05 10^3/uL 10^3/uL (0.02-0.10) Absolute Nucleated RBC 0.00 10^3/uL 10^3/uL (0-0.01) Immature Gran % 0.4 % % (0.0-1.1) Immature Gran # 0.03 10^3/uL 10^3/uL (0.00-0.10) Sodium 140 mEq/L mEq/L (134-144) Potassium 4.4 mEq/L mEq/L (3.5-5.2) Chloride 105 mEq/L mEq/L (97-110) Carbon Dioxide 25 mEq/l mEq/l (22-31) Anion Gap 10 mEq/L mEq/L (8-16) BUN 20 mg/dL mg/dL (7-23) Creatinine 0.6 mg/dL mg/dL (0.6-1.0) Estimated GFR > 60 Glucose 104 mg/dL H mg/dL (70-100) Calcium 9.8 mg/dL mg/dL (8.5-10.4) Urine Color YELLOW Urine Appearance HAZY Urine pH 6.0 (5.0-7.5) Ur Specific [place] 1.015 (1.002-1.030) Urine Protein NEGATIVE (NEGATIVE) Urine Ketones NEGATIVE (NEGATIVE) Urine Blood NEGATIVE (NEGATIVE) Urine Nitrate POSITIVE H (NEGATIVE) Urine Bilirubin NEGATIVE (NEGATIVE) Urine Urobilinogen NEGATIVE EU EU (0.2-1.0) Ur Leukocyte Esterase 1+ H (NEGATIVE) Urine RBC NONE SEEN /hpf /hpf (0-3) Urine WBC 10-15 /hpf H /hpf (0-3) Ur Epithelial Cells TRACE /lpf /lpf (NONE-1+) Hyaline Casts 1-5 /lpf /lpf (0-1) Urine Mucus TRACE /lpf /lpf (NONE-1+) Urine Glucose NEGATIVE (NEGATIVE) Medications Given: Discontinued Medications Cephalexin HCl (Keflex) 500 mg PO EDNOW ONE PRN Reason: Protocol Stop: 11/17/16 12:26 Last Admin: 11/17/16 13:04 Dose: 500 mg Lorazepam (Ativan) 0.5 mg PO EDNOW ONE Stop: 11/17/16 14:13 Last Admin: 11/17/16 14:17 Dose: 0.5 mg Departure - Departure Disposition: Home, Routine, Self-Care Clinical Impression: UTI (urinary tract infection) Qualifiers: Urinary tract infection type: site unspecified Hematuria presence: without hematuria Qualified Code(s): N39.0 - Urinary tract infection, site not specified Condition: Good Instructions: Urinary Tract Infection in Women (ED) Additional Instructions: Take antibiotics, 500mg of keflex twice daily for 5 days. Return to the emergency department for fevers, vomiting, abdominal pain, any new symptoms or concerns. Referrals: Chao Collins MD [Medical Doctor] - Follow Up Only If Needed Prescriptions: Cephalexin [Keflex] 500 mg PO BID 5 Days
[2016-11-17 12:14] LABS: % IMMATURE GRANULYOCYTES 0.4 % (0.0-1.1); ABSOLUTE IMMATURE GRANULOCYTES 0.03 10^3/uL (0.00-0.10); ADD DIFF? NO; ADD MORPH? NO; ADD SCAN? NO; ATYPICAL LYMPHOCYTE FLAG 0 (0-99); FRAGMENT RBC FLAG 0 (0-99); HEMOGLOBIN 15.1 g/dL (12.6-16.3); LEFT SHIFT FLG 0 (0-99); LIPEMIA HEMOLYSIS FLAG 80 (0-99); MEAN CELL HEMOGLOBIN 30.3 pg (27.9-34.1); MEAN CELL HEMOGLOBIN CONCENTR. 33.6 g/dL (32.4-36.7); MEAN CELL VOLUME 90.2 fL (81.5-99.8); MEAN PLATELET VOLUME 9.6 fL (8.7-11.7); PLATELET CLUMPS FLAG 10 (0-99); PLATELET COUNT 305 10^3/uL (150-400); RED BLOOD CELL COUNT 4.99 10^6/uL (4.18-5.33); RED CELL DISTRIBUTION WIDTH 15.3 % (11.5-15.2)
[2016-11-17] MEDS ORDERED: CEPHALEXIN 500 MG CAP PO ONE (12:25)
[2016-11-17 12:34] LABS: ANION GAP 10 mEq/L (8-16); CALCIUM 9.8 mg/dL (8.5-10.4); CARBON DIOXIDE 25 mEq/l (22-31); CHLORIDE 105 mEq/L (97-110); CREATININE 0.6 mg/dL (0.6-1.0); GLOMERULAR FILTRATION RATE > 60; GLUCOSE 104 mg/dL (70-100); POTASSIUM 4.4 mEq/L (3.5-5.2); SODIUM 140 mEq/L (134-144)
[2016-11-17 13:08] VITALS: BP 125/83; PULSE 76; TEMP 98.1; O2SAT 93
[2016-11-17] MEDS ORDERED: LORazepam 0.5 MG TAB PO ONE (14:12)
[2016-11-17] MEDS ORDERED: LORazepam 0.5 MG TAB ONE (14:12)
== END 2016-11-17 14:32 | disposition home or self-care (01) ==
LOC: EDUNIT#
DX: N39.0 Urinary tract infection, site not specified (principal); B96.20 Unspecified Escherichia coli [E. coli] as the cause of diseases classified elsewhere; Z79.82 Long term (current) use of aspirin; Z85.3 Personal history of malignant neoplasm of breast; Z87.891 Personal history of nicotine dependence

== ENCOUNTER 2016-12-01 15:53 | Emergency (ER) | payer OTHER ==
[2016-12-01 16:05] VITALS: RESP 17
--- NOTE | 2016-12-01 16:05 | EDPHY ---
H & P Time Seen by Provider: 12/01/16 15:57 HPI/ROS: CHIEF COMPLAINT: Found down after a fall HISTORY OF PRESENT ILLNESS: Patient has severe dementia and lives at [facility]. She was found on the ground crawling trying to get up. She complains only of head and neck pain. She does not remember anything else and further history and review of systems is limited because of the patient's dementia. REVIEW OF SYSTEMS: Eye: no change in vision No nausea or vomiting Musculoskeletal: Has some back pain but says to me that it is chronic. Skin: No lacerations Neuro: mild headache A comprehensive 10 point review of systems is otherwise unobtainable because of the patient's dementia. PAST MEDICAL HISTORY: Admission dated 08/14/2016 personally reviewed. Includes dementia, breast cancer, atrial fibrillation. Social history: Lives at [facility]. General Appearance: Alert and conversant, cooperative. Eyes: No scleral icterus. Pupils equal and reactive. ENT, Mouth: Normal mucous membranes. No tongue laceration or abrasion. Respiratory: Normal respiratory effort, breath sounds equal, lungs are clear to auscultation. Cardiovascular: Regular with frequent extrasystoles. Gastrointestinal: Abdomen is soft and non tender. Neurological: Patient is alert and will follow commands. She can't answer her age or the location. Face is symmetric. She does have normal movement and sensation all extremities. Skin: Warm and dry, no rashes. No lacerations. Musculoskeletal: No thoracic or lumbar spine tenderness. Point tenderness around C6. Psychiatric: Not agitated. Emergency Department course/MDM: EMS glucose 89. Patient has severe dementia and her most forms are reviewed which request primarily comfort care and DNR. Plan for head and cervical spine CT, discharged back to [facility] if those are negative. Discussed with her PCP Dr. Collins who is in the ER who agrees with the plan. Given her expressed wishes and her underlying dementia I do not think it is appropriate to do an extensive ED workup for possibility of syncope. 1705: Negative head and cervical spine CT for acute trauma per Dr. Navarrete. 1710: Alert and looks comfortable. Cervical spine cleared clinically at this time. Smoking Status: Former smoker Constitutional: Initial Vital Signs Temperature (C) 37.3 C 12/01/16 16:03 Heart Rate 85 12/01/16 16:03 Respiratory Rate 17 12/01/16 16:03 Blood Pressure 123/77 H 12/01/16 16:03 O2 Sat (%) 95 12/01/16 16:03 O2 Delivery Mode Room Air Allergies/Adverse Reactions: No Known Allergies Allergy (Verified 12/01/16 16:03) Home Medications: Medication Instructions Recorded Acetaminophen [Tylenol 325mg (*)] 650 mg PO Q4HRS PRN #60 tab 08/18/16 Aspirin [Aspirin 81mg (*)] 81 mg PO DAILY #30 tab.chew 08/18/16 Cholecalciferol Vit D3 [Vitamin D3 1,000 units PO DAILY #30 tab 08/18/16 (*)] Donepezil HCl [Aricept] 10 mg PO DAILY #30 tablet 08/18/16 Famotidine [Pepcid 20 MG (*)] 20 mg PO BID #60 tab 08/18/16 Metoprolol Tartrate [Lopressor 25 12.5 mg PO DAILY #30 tab 08/18/16 mg (*)] Quetiapine Fumarate 50 mg PO HS #30 tablet 08/18/16 Cephalexin [Keflex] 500 mg PO BID 5 Days 11/17/16 Medical Decision Making - Diagnostics Imaging Results: Imaging Impressions Cervical Spine CT 12/01/16 16:04 Impression: 1. Negative for intracranial hemorrhage. 2. Elderly brain with table findings of atrophy and probable white matter small vessel disease. CT Cervical Spine Without Contrast History: Trauma. Technique: Multislice helical CT through the cervical spine without contrast from the skull base to T1. Soft tissue and bone evaluation is performed. Sagittal and coronal reconstructions are obtained and reviewed. Dose reduction techniques were utilized. Comparison to the prior study July 05, 2016. Findings: An acute fracture is not identified. Postoperative changes are seen at the C1-C2 level with transpedicular screws and rods in position unchanged. There is reversal of the normal cervical curvature with a minimal anterolisthesis of C3 with respect to C4 and of C7 with respect to T1. Prevertebral soft tissues appear normal. Prominent disk space loss in vertebral body osteophytic lipping again noted from C3-C4 to C6-C7. Multilevel facet hypertrophy is also noted. Impression: 1. Negative for acute fracture. 2. Postoperative changes at C1-C2 stable. 3. Prominent multilevel spondylosis. Results called and discussed with ROGERIO COATES M.D. on 12/01/2016 at 17:[address] 12/01/16 16:04 Impression: 1. Negative for intracranial hemorrhage. 2. Elderly brain with table findings of atrophy and probable white matter small vessel disease. CT Cervical Spine Without Contrast History: Trauma. Technique: Multislice helical CT through the cervical spine without contrast from the skull base to T1. Soft tissue and bone evaluation is performed. Sagittal and coronal reconstructions are obtained and reviewed. Dose reduction techniques were utilized. Comparison to the prior study July 05, 2016. Findings: An acute fracture is not identified. Postoperative changes are seen at the C1-C2 level with transpedicular screws and rods in position unchanged. There is reversal of the normal cervical curvature with a minimal anterolisthesis of C3 with respect to C4 and of C7 with respect to T1. Prevertebral soft tissues appear normal. Prominent disk space loss in vertebral body osteophytic lipping again noted from C3-C4 to C6-C7. Multilevel facet hypertrophy is also noted. Impression: 1. Negative for acute fracture. 2. Postoperative changes at C1-C2 stable. 3. Prominent multilevel spondylosis. Results called and discussed with ROGERIO COATES M.D. on 12/01/2016 at 17:02 Differential Diagnosis: Differential diagnosis considered for head injury including but not limited to concussion, skull fracture, intraparenchymal contusion, subarachnoid, subdural and epidural hematoma. Departure - Departure Disposition: Home, Routine, Self-Care Clinical Impression: Head contusion Qualifiers: Encounter type: initial encounter Contusion of head detail: other part of head Qualified Code(s): S00.83XA - Contusion of other part of head, initial encounter Neck muscle strain Qualifiers: Encounter type: initial encounter Qualified Code(s): S16.1XXA - Strain of muscle, fascia and tendon at neck level, initial encounter Condition: Good Instructions: Cervical Strain (ED), Head Injury (ED) Referrals: Chao Collins MD [Medical Doctor] - As per Instructions
[2016-12-01 17:22] VITALS: BP 119/76; PULSE 81; TEMP 98.8; O2SAT 96
== END 2016-12-01 17:21 | disposition home or self-care (01) ==
LOC: EDUNIT#
DX: S00.83XA Contusion of other part of head, initial encounter (principal); S16.1XXA Strain of muscle, fascia and tendon at neck level, initial encounter; Z85.3 Personal history of malignant neoplasm of breast; Z87.891 Personal history of nicotine dependence; Z79.82 Long term (current) use of aspirin; W18.39XA Other fall on same level, initial encounter

== ENCOUNTER 2017-02-06 13:49 | Emergency (ER) | payer OTHER ==
[2017-02-06 14:05] VITALS: BP 108/62; PULSE 60; RESP 18; TEMP 98.1; O2SAT 94
--- NOTE | 2017-02-06 15:36 | EDPHY ---
H & P Stated Complaint: Numerous c/o;?fall on Saturday;increased tremors,agitation Time Seen by Provider: 02/06/17 15:09 HPI/ROS: CHIEF COMPLAINT: Mechanical fall, increasing confusion HISTORY OF PRESENT ILLNESS: The patient presents to the ED with her daughter-in -law for evaluation of a possible fall and increasing agitation noted at her long-term memory care facility. The patient does have a history of increasing agitation with urinary tract infections in the past. Staff at the [facility] facility noted she had some bruising on her right cheek. The patient was complaining intermittently of abdominal pain and back pain. The patient is a difficult historian secondary to her underlying dementia. Patient is not anticoagulated. There has been no history of fever or vomiting. There has been no history of diarrhea or new incontinence according to family. REVIEW OF SYSTEMS: A comprehensive 10 point review of systems is unobtainable from the patient secondary to her dementia Source: Patient, Family Exam Limitations: Other - Personal History Current Tetanus Diphtheria and Acellular Pertussis (TDAP): Yes Tetanus Vaccine Date: 2009 - Medical/Surgical History Hx Asthma: No Hx Chronic Respiratory Disease: No Hx Diabetes: No Hx Cardiac Disease: Yes Hx Renal Disease: No Hx Cirrhosis: No Hx Alcoholism: No Hx HIV/AIDS: No Hx Splenectomy or Spleen Trauma: No Other PMH: [facility] pt. dementia, Afib; late alzheimers; breast CA. GI Bleed - Social History Smoking Status: Former smoker - Physical Exam Exam: General Appearance: Elderly female, no acute distress Head: Small area of ecchymosis noted over right cheek, no scalp hematoma noted Eyes: Pupils equal, round, reactive ENT, Mouth: No hemotympanum, no oral trauma Neck: Nontender, trachea midline Respiratory: No chest wall tender, subcutaneous air, lungs clear bilaterally Cardiovascular: Regular rate and rhythm Abdomen: Abdomen is soft and nontender, pelvis stable Skin: No lacerations, No abrasion Back: Kyphotic spine, no midline tenderness Extremities: Nontender, full range of motion Neurological: Alert and oriented x1, 5/5 strength noted all 4 extremities, no gross cranial nerve deficits appreciated Constitutional: Initial Vital Signs Temperature (C) 36.7 C 02/06/17 14:00 Heart Rate 60 02/06/17 14:00 Respiratory Rate 18 02/06/17 14:00 Blood Pressure 108/62 02/06/17 14:00 O2 Sat (%) 94 02/06/17 14:00 O2 Delivery Mode Room Air Allergies/Adverse Reactions: No Known Allergies Allergy (Verified 12/01/16 16:03) Home Medications: Medication Instructions Recorded Aspirin [Aspirin 81mg (*)] 81 mg PO DAILY 02/06/17 Citalopram Hydrobromide 20 mg PO 02/06/17 [Citalopram HBr] Divalproex ER [Depakote ER 250 MG 250 mg PO BID 02/06/17 (*)] Donepezil HCl [Aricept] 10 mg PO 02/06/17 Famotidine [Pepcid 20 MG (*)] 20 mg PO BID 02/06/17 Metoprolol Succinate 25 mg PO 02/06/17 QUEtiapine FUMARATE [Seroquel 50 25 mg PO BID 02/06/17 mg (*)] Medical Decision Making - Diagnostics Imaging Results: Imaging Impressions Head CT 02/06/17 15:32 Impression: 1. No acute intracranial hemorrhage, subdural hematoma, or fracture. 2. Minimal right cheek subcutaneous edema. No hematoma or acute facial fracture. 3. Atrophy and white matter disease is unchanged since November 2016. Findings discussed with Emergency Department physician, Ceasar Blank M.D. , at February 06, 2017 at 1614. ED Course/Re-evaluation: The patient presents to the ED for evaluation after mechanical fall. The patient has dementia at baseline. She did have evidence of minor head trauma. Given her age and lack of reliable neurologic examination she was taken for a noncontrast head CT scan which demonstrates no evidence of an acute fracture. The patient is afebrile. Her CBC and basic metabolic panel are within normal limits. The patient does have pyuria noted on her urinalysis. The patient will be treated for possible cystitis with 5 days of Keflex 500 mg three times daily. The patient will be discharged back to her alf facility. Caregivers have been instructed to return to the ED for fever, vomiting, worsening symptoms or other concerns. Differential Diagnosis: Differential diagnosis considered includes intracranial hemorrhage, urinary tract infection, metabolic abnormality, dehydration - Data Points Laboratory Results: Laboratory Results 02/06/17 16:30 02/06/17 16:30 02/06/17 02/06/17 02/06/17 16:30 16:30 16:04 WBC 7.15 10^3/uL 10^3/uL (3.80-9.50) RBC 4.26 10^6/uL 10^6/uL (4.18-5.33) Hgb 13.0 g/dL g/dL (12.6-16.3) Hct 39.2 % % (38.0-47.0) MCV 92.0 fL fL (81.5-99.8) MCH 30.5 pg pg (27.9-34.1) MCHC 33.2 g/dL g/dL (32.4-36.7) RDW 14.6 % % (11.5-15.2) Plt Count 240 10^3/uL 10^3/uL (150-400) MPV 9.6 fL fL (8.7-11.7) Neut % (Auto) 55.8 % % (39.3-74.2) Lymph % (Auto) 28.1 % % (15.0-45.0) [place] % (Auto) 13.3 % H % (4.5-13.0) Eos % (Auto) 1.7 % % (0.6-7.6) Baso % (Auto) 1.0 % % (0.3-1.7) Nucleat RBC Rel Count 0.0 % % (0.0-0.2) Absolute Neuts (auto) 3.99 10^3/uL 10^3/uL (1.70-6.50) Absolute Lymphs (auto) 2.01 10^3/uL 10^3/uL (1.00-3.00) Absolute Monos (auto) 0.95 10^3/uL H 10^3/uL (0.30-0.80) Absolute Eos (auto) 0.12 10^3/uL 10^3/uL (0.03-0.40) Absolute Basos (auto) 0.07 10^3/uL 10^3/uL (0.02-0.10) Absolute Nucleated RBC 0.00 10^3/uL 10^3/uL (0-0.01) Immature Gran % 0.1 % % (0.0-1.1) Immature Gran # 0.01 10^3/uL 10^3/uL (0.00-0.10) Sodium 141 mEq/L mEq/L (134-144) Potassium 3.9 mEq/L mEq/L (3.5-5.2) Chloride 102 mEq/L mEq/L (97-110) Carbon Dioxide 27 mEq/l mEq/l (22-31) Anion Gap 12 mEq/L mEq/L (8-16) BUN 25 mg/dL H mg/dL (7-23) Creatinine 0.6 mg/dL mg/dL (0.6-1.0) Estimated GFR > 60 Glucose 84 mg/dL mg/dL (70-100) Calcium 9.5 mg/dL mg/dL (8.5-10.4) Urine Color MELODIE Urine Appearance HAZY Urine pH 5.0 (5.0-7.5) Ur Specific [place] 1.026 (1.002-1.030) Urine Protein 1+ H (NEGATIVE) Urine Ketones TRACE H (NEGATIVE) Urine Blood NEGATIVE (NEGATIVE) Urine Nitrate NEGATIVE (NEGATIVE) Urine Bilirubin NEGATIVE (NEGATIVE) Urine Urobilinogen 2.0 EU H EU (0.2-1.0) Ur Leukocyte Esterase TRACE H (NEGATIVE) Urine RBC 1-3 /hpf /hpf (0-3) Urine WBC 5-10 /hpf H /hpf (0-3) Ur Epithelial Cells TRACE /lpf /lpf (NONE-1+) Hyaline Casts 1-5 /lpf /lpf (0-1) Urine Mucus 3+ /lpf H /lpf (NONE-1+) Urine Glucose NEGATIVE (NEGATIVE) Departure - Departure Disposition: Home, Routine, Self-Care Clinical Impression: Dementia, Facial contusion, Dehydration, Urinary tract infection Condition: Good Instructions: Urinary Tract Infection in Women (ED) Additional Instructions: 1. Please take Keflex as directed for next 5 days for possible urinary tract infection. 2. Please return to the ED for fever, markedly abnormal behavior, severe pain or other concerns Referrals: Chao Collins MD [Primary Care Provider] - As per Instructions
[2017-02-06 16:38] LABS: COLOR AMBER; LEUKOCYTE ESTERASE,URINE TRACE (NEGATIVE); NITRITE,URINE NEGATIVE (NEGATIVE)
[2017-02-06 16:41] LABS: MUCUS 3+ /lpf (NONE-1+)
[2017-02-06 16:43] LABS: % IMMATURE GRANULYOCYTES 0.1 % (0.0-1.1); ABSOLUTE IMMATURE GRANULOCYTES 0.01 10^3/uL (0.00-0.10); ADD DIFF? NO; ADD MORPH? NO; ADD SCAN? NO; ATYPICAL LYMPHOCYTE FLAG 0 (0-99); FRAGMENT RBC FLAG 0 (0-99); HEMATOCRIT 39.2 % (38.0-47.0); LEFT SHIFT FLG 0 (0-99); LIPEMIA HEMOLYSIS FLAG 80 (0-99); MEAN CELL HEMOGLOBIN 30.5 pg (27.9-34.1); MEAN CELL HEMOGLOBIN CONCENTR. 33.2 g/dL (32.4-36.7); MEAN PLATELET VOLUME 9.6 fL (8.7-11.7); PLATELET CLUMPS FLAG 10 (0-99); PLATELET COUNT 240 10^3/uL (150-400); RED BLOOD CELL COUNT 4.26 10^6/uL (4.18-5.33); RED CELL DISTRIBUTION WIDTH 14.6 % (11.5-15.2)
[2017-02-06 16:59] LABS: ANION GAP 12 mEq/L (8-16); CALCIUM 9.5 mg/dL (8.5-10.4); CARBON DIOXIDE 27 mEq/l (22-31); CHLORIDE 102 mEq/L (97-110); CREATININE 0.6 mg/dL (0.6-1.0); GLOMERULAR FILTRATION RATE > 60; GLUCOSE 84 mg/dL (70-100); POTASSIUM 3.9 mEq/L (3.5-5.2); SODIUM 141 mEq/L (134-144)
== END 2017-02-06 17:25 | disposition home or self-care (01) ==
DX: S00.83XA Contusion of other part of head, initial encounter (principal); F03.90 Unspecified dementia, unspecified severity, without behavioral disturbance, psychotic disturbance, mood disturbance, and anxiety; E86.0 Dehydration; N39.0 Urinary tract infection, site not specified; Z85.3 Personal history of malignant neoplasm of breast; Z87.891 Personal history of nicotine dependence; Z79.82 Long term (current) use of aspirin; W18.39XA Other fall on same level, initial encounter

== ENCOUNTER 2017-02-08 03:39 | Emergency (ER) | payer OTHER ==
--- NOTE | 2017-02-08 03:50 | EDPHY ---
H & P HPI/ROS: Chief Complaint: Forehead abrasion HPI: 81-year-old woman with a history of advanced dementia, from [facility] was found on the floor next to her bed with an abrasion on her left side of her forehead. She was sent in the ER for further evaluation. Patient was complaining some back pain which is her chronic pain. She is in her normal mental state. It is noted that the patient does have a completed and signed MOST form indicating that she is a DNR and for comfort measures only which are her wishes. Patient is currently without complaint ROS: 10 point Review of Systems is negative except as noted in the HPI. PMH: Dementia, atrial fibrillation Social History: Lives in a [facility] Family History: non-contributory Physical Exam: Gen: Awake, Alert, No Distress HEENT: Small 3 cm abrasions superficially to her left forehead. No bony tenderness step-offs or crepitus Nose: no rhinorrhea Eyes: PERRLA, EOMI Mouth: Moist mucosa Neck: Supple, no JVD Chest: nontender, lungs clear to auscultation Heart: S1, S2 normal, no murmur, she is tachycardic with a rate of 110-130, irregular Abd: Soft, non-tender, no guarding Back: no CVA tenderness, no midline tenderness Ext: no edema, non-tender Skin: no rash Neuro: CN II-XII intact, Sensation grossly intact, Strength 5/5 in bilateral upper and lower extremities - Personal History Tetanus Vaccine Date: 2009 - Medical/Surgical History Hx Asthma: No Hx Chronic Respiratory Disease: No Hx Diabetes: No Hx Cardiac Disease: Yes Hx Renal Disease: No Hx Cirrhosis: No Hx Alcoholism: No Hx HIV/AIDS: No Hx Splenectomy or Spleen Trauma: No Other PMH: [facility] dementia, Afib; late alzheimers; breast CA. GI Bleed - Social History Smoking Status: Former smoker Allergies/Adverse Reactions: No Known Allergies Allergy (Verified 12/01/16 16:03) Home Medications: Medication Instructions Recorded Aspirin [Aspirin 81mg (*)] 81 mg PO DAILY 02/06/17 Cephalexin [Keflex] 500 mg PO TID #15 cap 02/06/17 Citalopram Hydrobromide 20 mg PO 02/06/17 [Citalopram HBr] Divalproex ER [Depakote ER 250 MG 250 mg PO BID 02/06/17 (*)] Donepezil HCl [Aricept] 10 mg PO 02/06/17 Famotidine [Pepcid 20 MG (*)] 20 mg PO BID 02/06/17 Metoprolol Succinate 25 mg PO 02/06/17 QUEtiapine FUMARATE [Seroquel 50 25 mg PO BID 02/06/17 mg (*)] Medical Decision Making ED Course/Re-evaluation: I had a long conversation with the patient's medical decision maker, her qmhshvsy-ag-dny Gladis Harding. She confirms that the patient is DNR and comfort measures only and would not want any testing or treatment either for her forehead abrasion or for her heart rate. She was unaware that the patient was being brought to the emergency department and wishes for the patient to be returned to her nursing facility. Patient is mentally at her baseline. Is not in any distress or any discomfort at this time. She will be returned back to her [facility] facility for further care there. Departure - Departure Disposition: Home, Routine, Self-Care Clinical Impression: Abrasion Condition: Good Instructions: Abrasion (ED) Additional Instructions: Follow up with your doctor in 2-3 days for re-evaluation. Referrals: Patient,NotPresent [Primary Care Provider] - As per Instructions
[2017-02-08 03:55] VITALS: RESP 16; TEMP 97.3
[2017-02-08 04:36] VITALS: BP 113/74; PULSE 112; O2SAT 96
== END 2017-02-08 04:37 | disposition home or self-care (01) ==
LOC: EDUNIT#
DX: S00.81XA Abrasion of other part of head, initial encounter (principal); Z79.82 Long term (current) use of aspirin; Z85.3 Personal history of malignant neoplasm of breast; Z87.891 Personal history of nicotine dependence; W19.XXXA Unspecified fall, initial encounter; Y92.129 Unspecified place in nursing home as the place of occurrence of the external cause

== ENCOUNTER 2017-02-21 16:45 | Emergency (ER) | payer OTHER ==
--- NOTE | 2017-02-21 17:11 | EDPHY ---
H & P Stated Complaint: unwitnessed fall today Time Seen by Provider: 02/21/17 17:03 HPI/ROS: CHIEF COMPLAINT: Fall HISTORY OF PRESENT ILLNESS: The patient is a 81-year-old female with history of advanced dementia [facility] was found lying on the ground next to her bed. There is concern for a fall. She has been seen here multiple times for the same complaint. No obvious signs of injury. The patient does not complain of any pain. She has no pain with movement of her extremities. She has a bruise to her right cheek that appears to be at least 3 to 4-day-old. It is already yellowing. She does have a history of atrial fibrillation but is not anticoagulated. REVIEW OF SYSTEMS: Unable to obtain secondary to condition EXAM: GENERAL: thin and in no acute distress. HEAD: Atraumatic, normocephalic. EYES: Pupils equal round and reactive to light, extraocular movements intact, sclera anicteric, conjunctiva are normal. ENT: Yellowish bruising to right cheek, no crepitus, TMs normal, nares patent, oropharynx clear without exudates. Moist mucous membranes. NECK: Normal range of motion, supple without lymphadenopathy or JVD. LUNGS: Breath sounds clear to auscultation bilaterally and equal. No wheezes rales or rhonchi. HEART: Regular rate and rhythm without murmurs, rubs or gallops. ABDOMEN: Soft, nontender, normoactive bowel sounds. No guarding, no rebound. No masses appreciated. BACK: No CVA tenderness, no spinal tenderness, step-offs or deformities EXTREMITIES: Normal range of motion without pain, no pitting or edema. No clubbing or cyanosis. NEUROLOGICAL: Cranial nerves II through XII grossly intact. Normal speech, normal gait. 5/5 strength, normal movement in all extremities, normal sensation PSYCH: Demented, does not answer questions SKIN: Warm, dry, normal turgor, no visible rashes or lesions. Source: EMS, retirement records, Old records Exam Limitations: Clinical condition - Personal History Current Tetanus Diphtheria and Acellular Pertussis (TDAP): Yes Tetanus Vaccine Date: 2009 - Medical/Surgical History Hx Asthma: No Hx Chronic Respiratory Disease: No Hx Diabetes: No Hx Cardiac Disease: Yes Hx Renal Disease: No Hx Cirrhosis: No Hx Alcoholism: No Hx HIV/AIDS: No Hx Splenectomy or Spleen Trauma: No Other PMH: [facility], Afib; late alzheimers; breast CA. GI Bleed - Family History Significant Family History: No pertinent family hx - Social History Smoking Status: Former smoker Alcohol Use: None Drug Use: None Constitutional: Initial Vital Signs Temperature (C) 36.7 C 02/21/17 16:56 Heart Rate 110 H 02/21/17 16:56 Respiratory Rate 14 02/21/17 16:56 Blood Pressure 107/92 H 02/21/17 16:56 O2 Sat (%) 93 02/21/17 16:56 O2 Delivery Mode Nasal Cannula O2 (L/minute) 2 Allergies/Adverse Reactions: No Known Allergies Allergy (Verified 02/08/17 03:54) Home Medications: Medication Instructions Recorded Aspirin [Aspirin 81mg (*)] 81 mg PO DAILY 02/06/17 Cephalexin [Keflex] 500 mg PO TID #15 cap 02/06/17 Citalopram Hydrobromide 20 mg PO 02/06/17 [Citalopram HBr] Divalproex ER [Depakote ER 250 MG 250 mg PO BID 02/06/17 (*)] Donepezil HCl [Aricept] 10 mg PO 02/06/17 Famotidine [Pepcid 20 MG (*)] 20 mg PO BID 02/06/17 Metoprolol Succinate 25 mg PO 02/06/17 QUEtiapine FUMARATE [Seroquel 50 25 mg PO BID 02/06/17 mg (*)] Medical Decision Making - Diagnostics Imaging Results: Imaging Impressions Head CT 02/21/17 17:26 Impression: Progressive bilateral bland subdural effusions since November 2016, with significant increase in the past 3 weeks. A neurosurgical consultation should be considered. A message was left with Anila for Dr. JHON BARRETT, at 02/21/2017 18:07 General information for patients regarding this examination can be found at [email or web address]. If you have questions or comments about this report, please contact me at [phone] (hospital) or [phone] (cell). ED Course/Re-evaluation: The patient has no signs of injury. She is not able to provide a history. She has been here multiple times for the same presentation. We will call the shelter or family to discuss options. 6:00 a.m. the patient remains without signs of significant injury. Case management has been involved and talking with the shelter about her being on palliative care possibly hospice. The family was contacted early and they did request a head CT. I will discharge her at this point. I discussed the CT results with Dr. Duvall from Neurosurgery. He is not concerned and states the patient can go home. He has reviewed the films at home. Differential Diagnosis: Partial list of the Differential diagnosis considered include but were not limited to; fall, head injury, dementia and although unlikely based on the history and physical exam, I also considered neck injury, back injury, extremity injury, assault. I discussed these differential diagnoses and the plan with the patient as well as the usual and expected course. The patient understands that the diagnosis is provisional and that in medicine we are not always correct and that further workup is often warranted. Usual and customary warnings were given. All of the patient's questions were answered. The patient was instructed to return to the emergency department should the symptoms at all worsen or return, otherwise to followup with the physician as we discussed. Departure - Departure Disposition: Home, Routine, Self-Care Clinical Impression: Fall Qualifiers: Encounter type: initial encounter Qualified Code(s): W19.XXXA - Unspecified fall, initial encounter Condition: Fair Instructions: Fall Prevention for Older Adults (ED) Referrals: Patient,NotPresent [Unknown] - As per Instructions
[2017-02-21 18:28] VITALS: BP 105/70; PULSE 90; RESP 18; TEMP 98.2; O2SAT 96
--- NOTE | 2017-02-21 18:29 | ASMTCMCOM ---
CM Note CM Note Notes: Patient brought to ER via EMS from her Memory Care Residence; [facility] after being found next to her bed from an apparant/possible fall. Patient has a history of advanced dementia and has visited the ER for similar incidences. Patient does have a MOST form accompanying her which includes her DNR status and "comfort focused treatment" Patient has had a CT head which is negative for acute injury. Chart reviewed and I have met with the patient who is oriented to self only. I have called [facility] and spoken to patient's current RN, Nato who knows patient well. She informs me that patient's current MPOA is Maritza , an ex-DIL. I have attempted to reach Maritza but did not receive an answer or VM. Nato also tells CM that patient's family had a hospice consult this past 02/18/17 with [facility], but family has not decided on hospice care involvement at this time. Nato states that they are discussing palliative care options with family as well. Patient has been medically cleared to return to [facility] and [facility] has been called for transport. Date Signed: 02/21/2017 06:29 PM Electronically Signed By:Hilda Campbell
== END 2017-02-21 19:16 | disposition home or self-care (01) ==
LOC: EDUNIT#
DX: S00.83XA Contusion of other part of head, initial encounter (principal); Z79.82 Long term (current) use of aspirin; Z85.3 Personal history of malignant neoplasm of breast; Z87.891 Personal history of nicotine dependence; W19.XXXA Unspecified fall, initial encounter